=== PATIENT | female | born 1995 | race Caucasian/White ===

== ENCOUNTER 2017-03-16 09:11 | Emergency (ER) | payer BC, OTHER ==
[~2017-03-16] VITALS: Ht 167.6 cm; Wt 60.0 kg
[~2017-03-16 09:11] MED LIST: AUGM875T PO; LORTA5 PO
[2017-03-16 09:13] VITALS: BP 143/69; PULSE 76; RESP 15; TEMP 98.3; O2SAT 99
--- NOTE | 2017-03-16 09:23 | PD ---
HPI Chief Complaint: Oral / Dental Pain or Problem Time Seen by Provider: 09:22 Travel History International Travel<30 days: No Contact w/Intl Traveler<30days: No Traveled to known affect area: No History of Present Illness HPI 21-year-old female presents the emergency department with sudden onset right-sided and swelling. Patient is on leave from recent graduation from [employer], where she states she had her wisdom teeth removed in January. Patient states she had no difficulty after the surgery until yesterday. Denies any specific tooth injury or cavities. There is no swelling at the site of the wisdom teeth removal. Patient states the pain is worse when she salivates. She has no fever, chills, or other symptoms. She has no swallowing or with her airway. Pain is 7 out of 10. It is worse today than it was yesterday. She has no known drug allergies. PFSH Past Medical History Diminished Hearing: No ?: Not Social History Alcohol Use: No Tobacco Use: No Substance Use: No Allergies-Medications (Allergen,Severity, Reaction): Coded Allergies: No Known Allergies (Unverified , 03/16/17) Reported Meds & Prescriptions Reported Meds & Active Scripts Active Penicillin V Potassium 500 Mg Tab 500 Mg PO Q6H 10 Days Ibuprofen 600 Mg Tab 600 Mg PO Q6H PRN Non-Aspirin Pain Relief ES (Acetaminophen) 500 Mg Tab 500 Mg PO Q6HR PRN Review of Systems Except as stated in HPI: all other systems reviewed are Neg General / Constitutional: No: Fever, Chills Eyes: No: Visual changes HENT: Positive: Dental Difficulties, No: Headaches, Sore Throat, Rhinitis, Rhinorrhea, Congestion, Nosebleed, Neck Stiffness, Neck Pain, Gingival Bleeding , Ear Discharge, Earache Cardiovascular: No: Chest Pain or Discomfort Respiratory: No: Shortness of Breath Gastrointestinal: No: Abdominal Pain Genitourinary: No: Dysuria Musculoskeletal: No: Pain Skin: No Rash Neurologic: No: Weakness Psychiatric: No: Depression Endocrine: No: Polydipsia Hematologic/Lymphatic: No: Easy Bruising Physical Exam Narrative GENERAL: Patient appears in no acute distress. SKIN: Warm and dry. HEAD: Atraumatic. Normocephalic. Patient has obvious firm swelling over the right lower jaw consistent with either dental abscess or sialolithiasis. EYES: Pupils equal and round. No scleral icterus. No injection or drainage. ENT: No nasal bleeding or discharge. Mucous membranes pink and moist. Pharynx is clear. Airway is patent. NECK: Trachea midline. Supple and nontender without significant lymphadenopathy. CARDIOVASCULAR: Regular rate and rhythm. RESPIRATORY: No accessory muscle use. Clear to auscultation. Breath sounds equal bilaterally. MUSCULOSKELETAL: Extremities without clubbing, cyanosis, or edema. No obvious deformities. NEUROLOGICAL: Awake and alert. No obvious cranial nerve deficits. Motor grossly within normal limits. Five out of 5 muscle strength in the arms and legs. Normal speech. PSYCHIATRIC: Appropriate mood and affect; insight and judgment normal. Data Data Last Documented VS Vital Signs Date Time Temp Pulse Resp B/P Pulse Ox O2 Delivery O2 Flow Rate FiO2 03/16/17 09:13 98.3 76 15 143/69 99 MDM Medical Decision Making Medical Screen Exam Complete: Yes Emergency Medical Condition: Yes Differential Diagnosis Dental abscess. Sialolithiasis. Dental pain. Narrative Course Patient is medically stable at time of exam. There is no sign of Domenico's angina. I feel the patient more likely has sialolithiasis versus dental abscess. Patient will be treated for both with 500 mg Pen-Vee K 4 times a day for 10 days. Patient also given ibuprofen 600 mg 4 times a day #40. Patient also given acetaminophen 500 mg 2 tabs every 6 hours when necessary for pain. #60. Patient is to use heat and ice and is encouraged to suck on sour things to encourage saliva production. Patient follow with her dentist as needed. Patient can return with worsening symptoms as needed. Diagnosis Primary Impression: Sialolithiasis Additional Impression: Dental abscess Referrals: Dentist Patient Instructions: Dental Abscess (ED), General Instructions, Sialoadenitis (ED) Additional Instructions: I feel the patient more likely has sialolithiasis versus dental abscess. Patient will be treated for both with 500 mg Pen-Vee K 4 times a day for 10 days. Patient also given ibuprofen 600 mg 4 times a day #40. Patient also given acetaminophen 500 mg 2 tabs every 6 hours when necessary for pain. #60. Patient is to use heat and ice and is encouraged to suck on sour things to encourage saliva production. Patient follow with her dentist as needed. Patient can return with worsening symptoms as needed. Med/Other Pt SpecificInfo: Prescription(s) given Scripts Penicillin V Potassium 500 Mg [id number] Mg PO Q6H 10 Days Prov:Melanie Henao DO 03/16/17 Ibuprofen 600 Mg [id number] Mg PO Q6H PRN (Pain/Inflammation) #40 TAB Prov:Melanie Henao DO 03/16/17 Acetaminophen (Non-Aspirin Pain Relief ES)500 Mg [id number] Mg PO Q6HR PRN (PAIN) # 60 TAB Prov:Melanie Henao DO 03/16/17 Disposition: 01 DISCHARGE HOME Condition: Stable Favian Nieves Mar 16, 2017 09:23
[2017-03-16] MEDS ORDERED: PENI500T PO (09:42)
[2017-03-16] MEDS ORDERED: IBUP-232 PO (09:42)
[2017-03-16] MEDS ORDERED: NON-500T13 PO (09:42)
== END 2017-03-16 09:58 | disposition home or self-care (01) ==
LOC: NEPD 09:11
DX: K11.5 Sialolithiasis (principal); K04.7 Periapical abscess without sinus
CPT/HCPCS: 99283